=== PATIENT | female | born 1990 | race Two or more races ===

== ENCOUNTER 2025-05-02 07:00 | Day surgery (SDC) | payer OTHER ==
[2025-04-26 12:52] VITALS: BP 125/81
[~2025-05-02] VITALS: Ht 154.9 cm; Wt 97.5 kg
[~2025-05-02 07:00] MED LIST: ACIPHEX20 MG PO; AMLODIPINE BESYL5 MG PO; AMLODIPINE-OLM1 EAC2 PO; HYDRODIURIL12.5 MG PO; MOUNJARO2.5 MG/0.5; TOPROL XL100 M1 PO; VITAMIN D
[2025-05-02] MEDS ORDERED: CEFOXITIN SODIUM 2,000 MG VIAL IV ONE (07:36)
[2025-05-02] MEDS ORDERED: PEPCID AC20 MG PO (11:22)
[2025-05-02] MEDS ORDERED: DICY20TA PO (11:22)
[2025-05-02] MEDS ORDERED: PERCOCET 5-3251 EACH PO (11:22)
[2025-05-02] MEDS ORDERED: ZOFRAN8 MG PO (11:22)
[2025-05-02] MEDS ORDERED: SUGAMMADEX SODIUM 200 MG/2 ML VIAL IV ONE (11:29)
[2025-05-02 21:49] VITALS: BP 120/60; O2SAT 100
== END 2025-05-02 14:43 | disposition home or self-care (01) ==
LOC: CIR.AMB 07:00
PROVIDERS: ATTEND Surgery
DX: K81.1 Chronic cholecystitis (principal)